=== PATIENT | male | born 1990 | race Caucasian/White ===

== ENCOUNTER 2021-03-31 00:30 | Emergency (ER) | payer OTHER ==
[~2021-03-31] VITALS: Ht 162.6 cm; Wt 71.7 kg
[2021-03-31] MEDS ORDERED: CRUTCH1 EACH MISC (02:01)
[2021-03-31] MEDS ORDERED: IBU600 MG PO (02:01)
== END 2021-03-31 02:15 | disposition home or self-care (01) ==
LOC: ED 00:30
DX: S80.02XA Contusion of left knee, initial encounter (principal); I10 Essential (primary) hypertension; V47.5XXA Car driver injured in collision with fixed or stationary object in traffic accident, initial encounter; F17.200 Nicotine dependence, unspecified, uncomplicated
CPT/HCPCS: 73560; 99284-25; A9270